=== PATIENT | female | born 1955 | race Caucasian/White ===

== ENCOUNTER 2016-12-31 17:10 | Emergency (ER) | payer OTHER ==
[~2016-12-31] VITALS: Ht 167.6 cm; Wt 63.5 kg
[~2016-12-31 17:10] MED LIST: COZ50 PO
[2016-12-31 17:13] VITALS: BP 144/91
--- NOTE | 2016-12-31 17:17 | NUR ---
Patient to bed 3 at this time.
--- NOTE | 2016-12-31 17:47 | NUR ---
PATIENT PRESENTS TO ED WITH SOB, WORK OF BREATHING INCREASED WITH SLIGHTEST ACTIVITIES-NO BLE EDEMA NOTED, NO ASCITES NOTED AT THIS TIME . PT ABLE TO SPEAK 3 WORDED SPEECH --] . DENIES N/V/D; SKIN IS PINK/WARM/DRY; AAOX4 WITH EVEN AND STEADY GAIT; PT DENIES ANY FEVER, CP, SOB, OR COUGH AT THIS TIME; PATIENT STATES PAIN OF 0/10 AT THIS TIME; VSS; PATIENT POSITIONED FOR COMFORT; HOB ELEVATED; BEDRAILS UP X2; BED DOWN. ER MD MADE AWARE OF PT STATUS.
--- NOTE | 2016-12-31 17:49 | NUR ---
X-Ray at bedside.
[2016-12-31] MEDS ORDERED: CLINDAMYCIN 600 MG/4 ML VIAL IM ONE (18:20)
[2016-12-31] MEDS ORDERED: diphenhydrAMINE 50 MG/ML VIAL IM ONE (18:20)
[2016-12-31] MEDS ORDERED: DEXAMETHASONE 10 MG/ML VIAL IM ONE (18:20)
[2016-12-31] MEDS ORDERED: ONDANSETRON 4 MG ODT PO ONE (18:20)
[2016-12-31] MEDS ORDERED: ALBUTEROL SULFATE/IPRATROPIU 3 ML SOL IH ONE (18:20)
--- NOTE | 2016-12-31 18:35 | NUR ---
hhntx given with duoneb
--- NOTE | 2016-12-31 18:51 | NUR ---
PT SMILING LAUGHING WITH DAUGHTER AT BEDSIDE. HOLDING FULL CLEAR SPEECH---DC HOME INSTRUCTIONS GIVEN TO PT AND DAUGHTER---
--- NOTE | 2016-12-31 18:54 | NUR ---
Patient discharged with v/s stable. Written and verbal after care instructions given and explained. Patient alert, oriented and verbalized understanding of instructions. Ambulatory with steady gait. All questions addressed prior to discharge. ID band removed. Patient advised to follow up with PMD. Rx of CLINDAMYCIN/PHENERGAN,PREDNISONE given. Patient educated on indication of medication including possible reaction and side effects. Opportunity to ask questions provided and answered.
[2016-12-31 19:01] VITALS: BP 143/77
== END 2016-12-31 18:51 | disposition home or self-care (01) ==
LOC: MED 17:10
DX: J45.909 Unspecified asthma, uncomplicated (principal); K74.60 Unspecified cirrhosis of liver; Z91.010 Allergy to peanuts; Z90.710 Acquired absence of both cervix and uterus
CPT/HCPCS: 71010; 94640; 96372; 99284; J1100; J1200; J3490; J7620; Q0092; S0119

== ENCOUNTER 2017-05-15 18:07 | Emergency (ER) | payer OTHER ==
[~2017-05-15] VITALS: Ht 162.6 cm; Wt 62.1 kg
[2017-05-15 18:13] VITALS: BP 135/92
--- NOTE | 2017-05-15 18:20 | NUR ---
PT TAKEN TO CHAIR B.
--- NOTE | 2017-05-15 18:24 | NUR ---
PATIENT IS A 61 YO FEMALE BIB SELF FOR SOB AND COUGH. AWAKE AND ALERT ABLE TO AMBULATE. HX OF LUPUS, HX OF GALLSTONES.
[2017-05-15 18:49] VITALS: BP 135/92
--- NOTE | 2017-05-15 18:49 | NUR ---
Patient discharged with v/s stable. Written and verbal after care instructions given and explained. Patient alert, oriented and verbalized understanding of instructions. Ambulatory with steady gait. All questions addressed prior to discharge. ID band removed. Patient advised to follow up with PMD. Rx of AUGMENTIN, PROMETHAZINE given. Patient educated on indication of medication including possible reaction and side effects. Opportunity to ask questions provided and answered.
== END 2017-05-15 18:49 | disposition home or self-care (01) ==
LOC: MED 18:07
DX: J20.9 Acute bronchitis, unspecified (principal); L93.0 Discoid lupus erythematosus; I10 Essential (primary) hypertension; Z91.010 Allergy to peanuts
CPT/HCPCS: 99283

== ENCOUNTER 2017-07-30 18:08 | Emergency (ER) | payer OTHER ==
[~2017-07-30] VITALS: Ht 157.5 cm; Wt 62.1 kg
--- NOTE | 2017-07-30 18:17 | NUR ---
PATIENT TO ER BED 1
[2017-07-30 18:22] VITALS: BP 166/97
[2017-07-30] MEDS ORDERED: ACETAMINOPHEN EXTRA STRENGTH 500 MG TAB PO ONE (18:30)
--- NOTE | 2017-07-30 18:30 | NUR ---
61f bib grandaughter with c/o sob x today, progressively getting worse. Pt sts she has ILD lung disease. Awaiting lung biopsy. Pts rr are even and tachynpenic. Clear speech. Pt also states back pain x today. Patient denies any injury. Pt is aox4. GCS=15. SKing is warm to touch. Pt appears anxious. No acute resp distress. Awaiting er md shelton. Will continue to monitor.
[2017-07-30] MEDS ORDERED: ACETAMINOPHEN EXTRA STRENGTH 500 MG TAB ONE (18:34)
[2017-07-30] MEDS ORDERED: IBUPROFEN 600 MG TAB ONE (18:39)
[2017-07-30] MEDS ORDERED: IBUPROFEN 600 MG TAB PO ONE ×2 (18:40→19:00)
[2017-07-30] MEDS ORDERED: NACL 0.9% 1,000 ML IV ONE (19:00)
--- NOTE | 2017-07-30 19:22 | NUR ---
Pt report given to Oscar MULLER. Transfer of care at this time.
[2017-07-30 19:37] LABS: BASOPHILS % (AUTO) 0.2 % (0.0-2.0); EOSINOPHILS % (AUTO) 0.1 % (0.0-4.0); HEMATOCRIT 37.8 % (36-48); HEMOGLOBIN 12.9 g/dL (12.0-16.0); LYMPHOCYTES # (AUTO) 0.6 K/uL (2.5-16.5); LYMPHOCYTES % (AUTO) 11.9 % (20.5-51.1); MEAN CORPUSCULAR HEMOGLOBIN 28 pg (27-31); MEAN CORPUSCULAR HGB CONC 34 g/dL (33-37); MEAN CORPUSCULAR VOLUME 82.6 fL (80-94); MONOCYTES # (AUTO) 0.4 K/uL (0.8-1.0); MONOCYTES % (AUTO) 8.7 % (1.7-9.3); NEUTROPHILS # (AUTO) 3.8 K/uL (1.8-7.7); NEUTROPHILS % (AUTO) 79.1 % (42.2-75.2); PLATELET COUNT (AUTO) 54 K/uL (140-450); RED BLOOD CELL COUNT(AUTO) 4.58 MIL/uL (4.20-5.40); WHITE BLOOD COUNT (AUTO) 4.9 K/uL (4.8-10.8)
[2017-07-30 19:41] LABS: ANION GAP 17.9 (8-16); CARBON DIOXIDE 21.9 mmol/L (21-32); CREATININE 0.9 mg/dL (0.6-1.3); POTASSIUM 3.8 mmol/L (3.5-5.1)
[2017-07-30 19:44] LABS: APPEARANCE,URINE SL CLOUDY (CLEAR); BILIRUBIN,URINE NEGATIVE (NEGATIVE); BLOOD, URINE TRACE-I (NEGATIVE); COLOR,URINE YELLOW (YELLOW); LEUKOCYTE ESTERASE ,URINE 2+ (NEGATIVE); NITRITE, URINE NEGATIVE (NEGATIVE); UGLUCOSE NEGATIVE (NEGATIVE)
[2017-07-30 19:47] LABS: ALBUMIN 3.4 g/dL (3.4-5.0); TOTAL BILIRUBIN 1.6 mg/dL (0.0-1.0)
[2017-07-30 20:03] LABS: RBC,URINE 0-5 (RARE) /HPF (0-5); WBC,URINE 20-60 /HPF (0-5)
[2017-07-30] MEDS ORDERED: cefTRIAXone 1,000 MG VIAL ONE (20:39)
[2017-07-30 21:49] VITALS: BP 166/97
--- NOTE | 2017-07-30 21:49 | NUR ---
Patient discharged with v/s stable, afebrile, without pain. Written and verbal after care instructions given and explained. Patient alert, oriented and verbalized understanding of instructions. Ambulatory with steady gait. All questions addressed prior to discharge. ID band removed. Patient advised to follow up with PMD. Rx of Cipro given. Patient educated on indication of medication including possible reaction and side effects. Opportunity to ask questions provided and answered.
[2017-07-31] MEDS ORDERED: CIPR500T4 PO (14:47)
== END 2017-07-30 21:49 | disposition home or self-care (01) ==
LOC: MED 18:08
DX: N12 Tubulo-interstitial nephritis, not specified as acute or chronic (principal); Z86.19 Personal history of other infectious and parasitic diseases; Z90.89 Acquired absence of other organs
CPT/HCPCS: 36415; 71045; 80053; 81001; 81025; 82140; 83605; 83880; 84484; 85025; 85610; 85730; 87040; 87086; 87186; 93005; 96361; 96365; 99285; J0696; J7030; J7060; Q0092

== ENCOUNTER 2017-07-31 11:33 | Inpatient (IN) | payer OTHER ==
[~2017-07-31] VITALS: Ht 167.6 cm; Wt 61.7 kg
[2017-07-31 11:43] VITALS: BP 118/76
[2017-07-31] MEDS ORDERED: ACETAMINOPHEN 325 MG TAB ONE (11:54)
--- NOTE | 2017-07-31 11:57 | NUR ---
Patient to bed 11. RN evaluating patient at bedside.
--- NOTE | 2017-07-31 11:58 | NUR ---
PATIENT PRESENTS TO ED WITH URINARY INFECTION, REPEAT VISIT FROM LAST NIGHT. PT STATES SYMPTOMS WORSENING, FEVER CONSTANT, HEADACHE WORSENING, CHILLS, SHIVERING, AND PAIN . DENIES N/V/D; SKIN IS PINK/WARM/DRY; AAOX4 WITH EVEN AND STEADY GAIT; LUNGS CLEAR BL; HR EVEN AND REGULAR; PT DENIES CP, SOB, OR COUGH AT THIS TIME; PATIENT STATES PAIN OF 9/10 AT THIS TIME; PATIENT POSITIONED FOR COMFORT; HOB ELEVATED; BEDRAILS UP X2; BED DOWN. ER MD MADE AWARE OF PT STATUS.
[2017-07-31] MEDS ORDERED: LEVOFLOXACIN 500 MG/D5W PREMIX 100 ML IV ONE (12:00)
[2017-07-31] MEDS ORDERED: NACL 0.9% 1,000 ML IV ONE ×2 (12:00→13:40)
[2017-07-31 12:43] LABS: BASOPHILS % (AUTO) 0.5 % (0.0-2.0); EOSINOPHILS % (AUTO) 0.3 % (0.0-4.0); HEMATOCRIT 37.2 % (36-48); HEMOGLOBIN 12.7 g/dL (12.0-16.0); LYMPHOCYTES # (AUTO) 0.7 K/uL (2.5-16.5); LYMPHOCYTES % (AUTO) 15.4 % (20.5-51.1); MEAN CORPUSCULAR HEMOGLOBIN 28 pg (27-31); MEAN CORPUSCULAR HGB CONC 34 g/dL (33-37); MEAN CORPUSCULAR VOLUME 81.8 fL (80-94); MONOCYTES # (AUTO) 0.5 K/uL (0.8-1.0); MONOCYTES % (AUTO) 11.2 % (1.7-9.3); NEUTROPHILS # (AUTO) 3.5 K/uL (1.8-7.7); NEUTROPHILS % (AUTO) 72.6 % (42.2-75.2); PLATELET COUNT (AUTO) 55 K/uL (140-450); RED BLOOD CELL COUNT(AUTO) 4.54 MIL/uL (4.20-5.40); RED CELL DISTRIBUTION WIDTH 15.3 % (11.6-13.7); WHITE BLOOD COUNT (AUTO) 4.8 K/uL (4.8-10.8)
[2017-07-31 12:43] LABS: BILIRUBIN,URINE NEGATIVE (NEGATIVE); COLOR,URINE YELLOW (YELLOW); NITRITE, URINE NEGATIVE (NEGATIVE); PH,URINE 7.5 (5.0-9.0); UGLUCOSE NEGATIVE (NEGATIVE)
[2017-07-31] MEDS ORDERED: ONDANSETRON 4 MG/2 ML VIAL IVP ONE (12:50)
[2017-07-31] MEDS ORDERED: KETOROLAC 30 MG/ML VIAL IVP ONE (12:50)
[2017-07-31 13:03] LABS: ANION GAP 21.9 (8-16); CARBON DIOXIDE 16.9 mmol/L (21-32); CREATININE 1.1 mg/dL (0.6-1.3); POTASSIUM 3.8 mmol/L (3.5-5.1)
[2017-07-31 13:08] LABS: ALBUMIN 3.1 g/dL (3.4-5.0); TOTAL BILIRUBIN 2.2 mg/dL (0.0-1.0)
[2017-07-31 13:09] LABS: LEUKOCYTE ESTERASE ,URINE 1+ (NEGATIVE)
[2017-07-31 13:10] LABS: BLOOD, URINE TRACE (NEGATIVE); RBC,URINE 0-5 (RARE) /HPF (0-5)
[2017-07-31 13:13] LABS: APPEARANCE,URINE HAZY (CLEAR)
--- NOTE | 2017-07-31 13:15 | NUR ---
pt c/o RT ac iv pain with movement. iv discontinued and inserted new to left ac #20. meds resumed.
[2017-07-31] MEDS ORDERED: CIPR500T4 PO (14:47)
[2017-07-31 15:30] VITALS: BP 121/70
--- NOTE | 2017-07-31 15:30 | NUR ---
PATIENT ARRIVED ON MST UNIT FROM ER BED/GURNEY. PATIENT ABLE TO WALK FROM ER BED/GURNEY TO MST BED WITH STEADY GAIT. NO DISTRESS NOTED. PAIN WITHIN TOLERABLE. RESPIRATION EVEN, UNLABORED, ON ROOM AIR. AAOX4, CALM, COOPERATIVE, SKIN COLOR APPROPRIATE TO ETHNICITY, WARM TO TOUCH. ABDOMEN SOFT, NON-DISTENDED. LUNGS CTA ON ALL LOBES. SKIN IS INTACT. ORIENTED PATIENT TO ROOM AND CALL LIGHT. REVIEWED PLAN OF CARE WITH PATIENT. PATIENT VERBALIZED UNDERSTANDING. SAFETY MEASURES IN PLACE, CALL LIGHT WITHIN REACH. WILL CONTINUE TO MONITOR.
--- NOTE | 2017-07-31 15:30 | NUR ---
Patient will be admitted to care of DR. VILLANUEVA. Admited to TELE. Will go to room 120A. Belongings list completed. Report to RENZO DEJESUS.
--- NOTE | 2017-07-31 16:30 | NUR ---
DR. VILLANUEVA AT BEDSIDE REVIEWING PLAN OF CARE WITH PATIENT. WILL CONTINUE TO MONITOR.
[2017-07-31] MEDS: NACL 0.9% 1,000 ML IV SCH (16:33)
[2017-07-31] MEDS ORDERED: ACETAMINOPHEN 325 MG TAB PO PRN (16:35)
[2017-07-31] MEDS ORDERED: MORPHINE SULFATE 4 MG/ML SYR IVP PRN (16:35)
[2017-07-31] MEDS ORDERED: ONDANSETRON 4 MG/2 ML VIAL IVP PRN (16:35)
--- NOTE | 2017-07-31 17:30 | NUR ---
PATIENT SITTING IN BED COMFORTABLY. NO DISTRESS NOTED. PAIN WITHIN TOLERABLE. SCHEDULED MEDICATIONS DUE GIVEN. WILL CONTINUE TO MONITOR.
--- NOTE | 2017-07-31 18:00 | NUR ---
PATIENT SITTING IN BED WITH DINNER TRAY IN FRONT. FAMILY MEMBERS AT BEDSIDE. NO DISTRESS NOTED. CONDITION UNCHANGED. WILL CONTINUE TO MONITOR.
--- NOTE | 2017-07-31 19:25 | NUR ---
GAVE REPORT TO SENIOR TECHNICAL WRITER NURSE FOR CONTINUITY OF CARE. PATIENT IN STABLE CONDITION.
--- NOTE | 2017-07-31 19:26 | NUR ---
PATIENT REPORT RECEIVED FROM MORNING NURSE AT BEDSIDE. PATIENT IS AWAKE, ALERT AND ORIENTED. NO SIGNS AND SYMPTOMS OF DISTRESS NOTED. NO COMPLAINTS OF PAIN AT THIS TIME. IV SITE NOTED ON LEFT AC, IVF INFUSING WELL. PLAN OF CARE DISCUSSED WITH PATIENT. PATIENT VERBALIZED UNDERSTANDING. BED IN LOWEST POSITION, SIDE RAILS UP AND CALL LIGHT WITHIN REACH. WILL CONTINUE TO MONITOR.
[2017-07-31 20:00] VITALS: BP 141/80
[2017-07-31] MEDS ORDERED: PIPERACILLIN/TAZOBACTAM 3.375 GM VIAL IV ONE (20:14)
[2017-07-31] MEDS: PIPERACILLIN/TAZOBACTAM 3.375 GM in DEXTROSE 5% 50 ML IV SCH (20:33)
--- NOTE | 2017-07-31 21:00 | NUR ---
MEDICATION EDUCATION GIVEN. PATIENT VERBALIZED UNDERSTANDING. MEDICATION GIVEN ORDERED. PATIENT TOLERATED WELL. WILL CONTINUE TO MONITOR.
--- NOTE | 2017-07-31 23:00 | NUR ---
CHECKED ON PATIENT. PATIENT IS RESTING COMFORTABLY IN BED. NO SIGNS AND SYMPTOMS OF DISTRESS NOTED. WILL CONTINUE TO MONITOR.
[2017-08-01] VITALS: BP 137/77
--- NOTE | 2017-08-01 03:00 | NUR ---
CHECKED ON PATIENT. PATIENT IS RESTING COMFORTABLY IN BED. NO SIGNS AND SYMPTOMS OF DISTRESS NOTED. WILL CONTINUE TO MONITOR.
[2017-08-01 04:00] VITALS: BP 135/70
[2017-08-01] MEDS ORDERED: PIPERACILLIN/TAZOBACTAM 3.375 GM VIAL IV ONE (04:26)
[2017-08-01] MEDS: PIPERACILLIN/TAZOBACTAM 3.375 GM in DEXTROSE 5% 50 ML IV SCH (04:30)
[2017-08-01] MEDS: NACL 0.9% 1,000 ML IV SCH (05:08)
--- NOTE | 2017-08-01 07:17 | NUR ---
PATIENT REPORT GIVEN TO MORNING NURSE AT BEDSIDE. PATIENT IS IN STABLE CONDITION
--- NOTE | 2017-08-01 07:18 | NUR ---
PATIENT REPORT RECEIVED FROM TOOLROOM CHECKER NURSE AT BEDSIDE FOR CONTINUITY OF CARE. PATIENT IS ASLEEP BUT AROUSABLE. NO SIGNS AND SYMPTOMS OF DISTRESS NOTED ON ROOM AIR. NO COMPLAINTS OF PAIN AT THIS TIME. IV SITE NOTED ON LEFT AC, IVF INFUSING WELL. UPDATED THE BOARD, PLAN OF CARE DISCUSSED WITH PATIENT, PATIENT VERBALIZED UNDERSTANDING. SAFETY PRECAUTION IN PLACE, BED IN LOWEST POSITION, CALL LIGHT WITHIN REACH, WILL CONTINUE TO MONITOR PATIENT.
[2017-08-01 08:00] VITALS: BP 111/55
[2017-08-01] MEDS ORDERED: LOSARTAN 50 MG TAB PO SCH (09:00)
[2017-08-01] MEDS ORDERED: predniSONE 20 MG TAB PO SCH (09:00)
--- NOTE | 2017-08-01 09:12 | NUR ---
ADMINISTERED ORDERED MEDICATIONS. PATIENT TOLERATED THEM WELL. PATIENT RESTING IN BED. NO DISTRESS OR SOB NOTED ON ROOM AIR. PATIENT DENIES PAIN AT THIS MOMENT. SAFETY PRECAUTION IN PLACE, CALL LIGHT WITHIN REACH. WILL CONTINUE TO MONITOR PATIENT.
[2017-08-01 09:26] LABS: HEMATOCRIT 32.5 % (36-48); HEMOGLOBIN 11.1 g/dL (12.0-16.0); MEAN CORPUSCULAR HEMOGLOBIN 28 pg (27-31); MEAN CORPUSCULAR HGB CONC 34 g/dL (33-37); MEAN CORPUSCULAR VOLUME 82.8 fL (80-94); PLATELET COUNT (AUTO) 40 K/uL (140-450); RED BLOOD CELL COUNT(AUTO) 3.93 MIL/uL (4.20-5.40); RED CELL DISTRIBUTION WIDTH 15.2 % (11.6-13.7); WHITE BLOOD COUNT (AUTO) 2.3 K/uL (4.8-10.8)
[2017-08-01 10:00] LABS: ALBUMIN 2.5 g/dL (3.4-5.0); ANION GAP 14.1 (8-16); CARBON DIOXIDE 21.3 mmol/L (21-32); POTASSIUM 3.4 mmol/L (3.5-5.1); TOTAL BILIRUBIN 1.6 mg/dL (0.0-1.0)
[2017-08-01 10:10] LABS: LYMPHOCYTES % (MANUAL) 17 % (20-46); MONOCYTES % (MANUAL) 9 % (5-12)
[2017-08-01 10:11] LABS: BASOPHILS % (MANUAL) 0 % (0-2); EOSINOPHILS % (MANUAL) 0 % (0-4)
--- NOTE | 2017-08-01 11:32 | NUR ---
LAB REPORTED URINE CULTURE POSITIVE FOR E.COLI MDRO---- PT REMAINS ADMITTED ROOM 120-A, CHARGE NANCY NOT AVAILABLE FOR REPORT JENNIFER MULLER INFORMED AND WILL NOTIFY CHARGE OF POSITIVE CULTURE
[2017-08-01 12:00] VITALS: BP 112/63
--- NOTE | 2017-08-01 12:00 | NUR ---
RECEIVED MESSAGE FROM LAB VIA CHUYITA Glow, PATIENT POSITIVE FOR MDRO AND ECOLI IN THE URINE. CALLED LAB BACK TO FIND THE RESULTS. RESULTS ARE FROM PATIENT'S VISIT TO THE ER ON 07/30/2017. PAGED DR. VILLANUEVA TO INFORM HER OF NEW FINDING. WILL WAIT FOR HER CALL BACK.
--- NOTE | 2017-08-01 12:15 | NUR ---
NEW ORDERS IN. PATIENT NOW IN CONTACT ISOLATION. PATIENT MOVED FROM ROOM 120A TO 118, PATIENT TOOK ALL HER BELONGINGS WITH HER. FAMILY AT BEDSIDE. EDUCATED PATIENT AND FAMILY MEMBERS ON CONTACT ISOLATION PROTOCOL, THEY VERBALIZED UNDERSTANDING. PATIENT NOW RESTING IN BED, NO DISTRESS OR SOB NOTED ON ROOM AIR. PATIENT DENIES PAIN AT THIS MOMENT. SAFETY PRECAUTION IN PLACE, CALL LIGHT WITHIN REACH. WILL CONTINUE TO MONITOR PATIENT.
--- NOTE | 2017-08-01 12:38 | NUR ---
ADMINISTERED ORDERED MEDICATION. PATIENT TOLERATED IT WELL. PATIENT RESTING IN BED. NO DISTRESS OR SOB NOTED ON ROOM AIR. PATIENT DENIES PAIN AT THIS MOMENT. SAFETY AND ISOLATION PRECAUTION IN PLACE, CALL LIGHT WITHIN REACH. WILL CONTINUE TO MONITOR PATIENT.
[2017-08-01] MEDS ORDERED: PIPER/TAZO 3.375GM/D5W PREMIX 50 ML IV SCH (13:00)
[2017-08-01 16:00] VITALS: BP 137/69
--- NOTE | 2017-08-01 16:59 | NUR ---
DR. VILLANUEVA TO SEE THE PATIENT. DISCHARGE INSTRUCTIONS IN, PATIENT AWARE. WILL START THE DISCHARGE PROCESS. PATIENT CURRENTLY RESTING IN BED, SIGNIFICANT OTHER AT BEDSIDE, NO SIGNS OF DISTRESS OR SOB NOTED ON ROOM AIR. PATIENT DENIES PAIN. SAFETY AND ISOLATION PRECAUTION IN PLACE, CALL LIGHT WITHIN REACH. WILL CONTINUE TO MONITOR PATIENT.
--- NOTE | 2017-08-01 17:30 | NUR ---
DISCHARGE INSTRUCTIONS AND EDUCATION GIVEN TO PATIENT. PATIENT VERBALIZED UNDERSTANDING. IV REMOVED, IV CATHETER INTACT, MINIMAL BLOOD NOTED. ID BANDS CUT. TELE MONITOR REMOVED. PATIENT WILL NOW GET DRESSED AND BE READY TO BED DISCHARGED HOME.
--- NOTE | 2017-08-01 17:55 | NUR ---
PATIENT WHEELED OFF FLOOR BY RN. PATIENT TOOK ALL HER BELONGINGS WITH HER. PATIENT IN STABLE CONDITION.
--- NOTE | 2017-08-02 16:54 | NUR ---
RETRO REVIEW ER REPORT AND H&P FAXED TO [facility] [phone] PHONE DANIS [phone]
== END 2017-08-01 17:55 | disposition home or self-care (01) | DRG 463 ==
LOC: MED 11:33 → MTU 14:27
PROVIDERS: ADMIT Hospitalist; ATTEND Hospitalist
DX: N12 Tubulo-interstitial nephritis, not specified as acute or chronic (principal); J84.9 Interstitial pulmonary disease, unspecified; D69.6 Thrombocytopenia, unspecified; N13.30 Unspecified hydronephrosis; K70.30 Alcoholic cirrhosis of liver without ascites; I10 Essential (primary) hypertension; J44.9 Chronic obstructive pulmonary disease, unspecified; F10.10 Alcohol abuse, uncomplicated; Z91.010 Allergy to peanuts; Z79.899 Other long term (current) drug therapy; Z90.710 Acquired absence of both cervix and uterus; Z87.442 Personal history of urinary calculi
CPT/HCPCS: 36415; 71045; 80053; 81001; 83605; 85025; 87040; 87081; 96361; 96374; 96375; 99285; J1885; J1956; J2270; J2405; J2543; J7030; J7060; J7512

== ENCOUNTER 2018-04-22 03:15 | Emergency (ER) | payer OTHER ==
[~2018-04-22] VITALS: Ht 162.6 cm; Wt 68.0 kg
[~2018-04-22 03:15] MED LIST changes: +CIPR500T4 PO
[2018-04-22 03:21] VITALS: BP 145/79
[2018-04-22] MEDS ORDERED: ONDANSETRON 4 MG/2 ML VIAL IVP ONE (03:55)
[2018-04-22] MEDS ORDERED: ONDANSETRON 4 MG ODT PO ONE (04:05)
[2018-04-22] MEDS: MORPHINE SULFATE 4 MG/ML SYR IVP ONE (04:08)
[2018-04-22] MEDS: NACL 0.9% 1,000 ML IV ONE (04:09)
[2018-04-22] MEDS ORDERED: ONDANSETRON 4 MG TAB ONE (04:14)
[2018-04-22] MEDS: ONDANSETRON 4 MG TAB PO ONE (04:21)
[2018-04-22 05:15] VITALS: BP 117/64
== END 2018-04-22 05:15 | disposition home or self-care (01) ==
LOC: MED 03:15
DX: N39.0 Urinary tract infection, site not specified (principal); R11.2 Nausea with vomiting, unspecified; R19.7 Diarrhea, unspecified; J44.9 Chronic obstructive pulmonary disease, unspecified; I10 Essential (primary) hypertension; Z90.49 Acquired absence of other specified parts of digestive tract; Z79.899 Other long term (current) drug therapy; Z90.710 Acquired absence of both cervix and uterus
CPT/HCPCS: 81002; 96361; 96374; 99283; J2270; Q0162

== ENCOUNTER 2019-02-03 17:01 | Emergency (ER) | payer OTHER ==
[~2019-02-03] VITALS: Ht 157.5 cm; Wt 67.6 kg
[~2019-02-03 17:01] MED LIST changes: -COZ50 PO; +LOSA50TA57 PO
[2019-02-03 17:19] VITALS: BP 137/105
--- NOTE | 2019-02-03 17:25 | NUR ---
PT TO ER LOBBY. BP ELEVATED. PT ALERT AND AWAKE. 95% RA.
--- NOTE | 2019-02-03 20:42 | NUR ---
RECEIVED CALL FROM PATIENT STATING SHE HAD LEFT WITHOUT BEING SEEN.
== END 2019-02-03 20:42 | disposition left against medical advice (07) ==
LOC: MED 17:01
DX: R07.0 Pain in throat (principal); R13.10 Dysphagia, unspecified; Z53.21 Procedure and treatment not carried out due to patient leaving prior to being seen by health care provider

== ENCOUNTER 2019-12-10 08:54 | Emergency (ER) | payer OTHER ==
[~2019-12-10] VITALS: Ht 157.5 cm; Wt 68.0 kg
[2019-12-10 08:56] VITALS: BP 160/97
--- NOTE | 2019-12-10 09:11 | NUR ---
HX : HTN, CIRRHOSIS, ARTHRITIS, LUNG DISEASE, HYPERTHYROID
--- NOTE | 2019-12-10 09:11 | NUR ---
64/F STATES HER TONGUE FELT LIKE IT WAS "TWISTING" SPONTANEOUSLY FOR ABOUT 10 SEC THIS MORNING AND DIFFICULTY SPEAKING. DID NOT BITE TONGUE. DENIES DIZZINESS, MUSCLE WEAKNESS, VISION CHANGE A/W COMPLAINT. STATES "I COULDN'T THINK" DURING THAT TIME, BUT SON DID NOT NOTICE ANY CONFUSION. PT DENIES ANXIETY. STATES THROAT DISCOMFORT 2/2 HYPERTHYROID.
--- NOTE | 2019-12-10 09:14 | NUR ---
DR URIAS EVALUATING PT AT THIS TIME
[2019-12-10] MEDS ORDERED: LORazepam 0.5 MG TAB PO ONE (09:25)
--- NOTE | 2019-12-10 09:40 | NUR ---
EMT AT BEDSIDE FOR EKG
--- NOTE | 2019-12-10 10:38 | NUR ---
PT STATES SHE FEELS "BETTER" AND "MORE CALM" NOW
--- NOTE | 2019-12-10 11:25 | NUR ---
PT CONTINUES TO STATE THAT SHE FEELS WELL
[2019-12-10 12:02] VITALS: BP 150/88
== END 2019-12-10 12:02 | disposition home or self-care (01) ==
LOC: MED 08:54
DX: F41.9 Anxiety disorder, unspecified (principal); J44.9 Chronic obstructive pulmonary disease, unspecified; I10 Essential (primary) hypertension; Z90.49 Acquired absence of other specified parts of digestive tract; Z90.710 Acquired absence of both cervix and uterus; Z79.899 Other long term (current) drug therapy
CPT/HCPCS: 93005; 99283

== ENCOUNTER 2019-12-18 11:51 | Emergency (ER) | payer OTHER ==
[~2019-12-18] VITALS: Ht 167.6 cm; Wt 68.0 kg
[2019-12-18 12:01] VITALS: BP 139/98
--- NOTE | 2019-12-18 12:33 | NUR ---
c/o last night started with heartburn and progressed to ruq sharp stabbing buring pain---constant now---with n/v----
[2019-12-18] MEDS ORDERED: ONDANSETRON 4 MG/2 ML VIAL IVP ONE (12:40)
[2019-12-18] MEDS ORDERED: KETOROLAC 30 MG/ML VIAL IVP ONE (12:40)
--- NOTE | 2019-12-18 12:51 | NUR ---
EKG BEING PERFORMED AT BEDSIDE BY EMT.
--- NOTE | 2019-12-18 12:57 | NUR ---
IV PLACED IN R AC 20 G. LABS DRAWN AND GIVEN TO GYM ATTENDANT.
[2019-12-18 13:02] LABS: BASOPHILS % (AUTO) 0.6 % (0.0-2.0); EOSINOPHILS % (AUTO) 0.7 % (0.0-4.0); HEMATOCRIT 39.6 % (36-48); HEMOGLOBIN 13.9 g/dL (12.0-16.0); LYMPHOCYTES # (AUTO) 1.2 K/uL (2.5-16.5); LYMPHOCYTES % (AUTO) 20.1 % (20.5-51.1); MEAN CORPUSCULAR HEMOGLOBIN 30 pg (27-31); MEAN CORPUSCULAR HGB CONC 35 g/dL (33-37); MEAN CORPUSCULAR VOLUME 86.8 fL (80-94); MONOCYTES # (AUTO) 0.6 K/uL (0.8-1.0); MONOCYTES % (AUTO) 9.6 % (1.7-9.3); NEUTROPHILS # (AUTO) 4.1 K/uL (1.8-7.7); PLATELET COUNT (AUTO) 116 K/uL (140-450); RED BLOOD CELL COUNT(AUTO) 4.57 MIL/uL (4.20-5.40); RED CELL DISTRIBUTION WIDTH 13.7 % (11.6-13.7)
--- NOTE | 2019-12-18 13:02 | NUR ---
PT AMBULATE TO RETROOM WITH STEADY GAIT.
--- NOTE | 2019-12-18 13:06 | NUR ---
UA COLLECTED AND PLACED IN DIRTY UTILITY ROOM.
--- NOTE | 2019-12-18 13:06 | NUR ---
PT AMBULATED TO BED WITH STEADY GAIT. US AT BEDSIDE.
--- NOTE | 2019-12-18 13:07 | NUR ---
MEDHX: HYPERTHYROID, GALLSTONES CIRRHOSIS
[2019-12-18 13:25] LABS: ALBUMIN 3.9 g/dL (3.4-5.0); ANION GAP 16.1 (8-16); CARBON DIOXIDE 22.2 mmol/L (21-32); CREATININE 0.9 mg/dL (0.6-1.3); POTASSIUM 3.3 mmol/L (3.5-5.1); TOTAL BILIRUBIN 1.7 mg/dL (0.0-1.0)
[2019-12-18 13:38] LABS: APPEARANCE,URINE CLEAR (CLEAR); BILIRUBIN,URINE NEGATIVE (NEGATIVE); BLOOD, URINE TRACE-L (NEGATIVE); COLOR,URINE YELLOW (YELLOW); LEUKOCYTE ESTERASE ,URINE NEGATIVE (NEGATIVE); NITRITE, URINE NEGATIVE (NEGATIVE); PH,URINE 6.5 (5.0-9.0); UGLUCOSE NEGATIVE (NEGATIVE)
[2019-12-18 14:02] LABS: RBC,URINE 0-5 /HPF (0-5); WBC,URINE NONE SEEN /HPF (0-5)
--- NOTE | 2019-12-18 14:14 | NUR ---
ERMD AT BEDSIDE.
--- NOTE | 2019-12-18 14:32 | NUR ---
IV removed, catheter intact and site benign. Applied folded 4x4 gauze and tape to stop bleeding.
[2019-12-18 14:35] VITALS: BP 136/84
--- NOTE | 2019-12-18 14:35 | NUR ---
Patient discharged with v/s stable. Written and verbal after care instructions given and explained. Patient alert, oriented and verbalized understanding of instructions. Ambulatory with steady gait. All questions addressed prior to discharge. ID band removed. Patient advised to follow up with PMD. Rx of NAPROSYN, NORCO, ZOFRAN given. Patient educated on indication of medication including possible reaction and side effects. Opportunity to ask questions provided and answered.
== END 2019-12-18 14:35 | disposition home or self-care (01) ==
LOC: MED 11:51
DX: K80.20 Calculus of gallbladder without cholecystitis without obstruction (principal); R11.0 Nausea; I10 Essential (primary) hypertension; E07.9 Disorder of thyroid, unspecified; Z79.899 Other long term (current) drug therapy
CPT/HCPCS: 36415; 76705; 80053; 81001; 83690; 85025; 93005; 96374; 96375; 99285; J1885; J2405; Q0092

== ENCOUNTER 2023-05-30 18:50 | Emergency (ER) | payer OTHER ==
[~2023-05-30] VITALS: Ht 162.6 cm; Wt 59.9 kg
[2023-05-30 18:55] VITALS: BP 178/86; PULSE 98; RESP 20; TEMP 97.7; O2SAT 98
[2023-05-30] MEDS ORDERED: ACET-10509 PO (21:39)
[2023-05-30 21:44] VITALS: BP 142/92; PULSE 91; RESP 20; TEMP 97.7; O2SAT 100
== END 2023-05-30 21:44 | disposition home or self-care (01) ==
LOC: MED 18:50
DX: S16.1XXA Strain of muscle, fascia and tendon at neck level, initial encounter (principal); S20.229A Contusion of unspecified back wall of thorax, initial encounter; S00.03XA Contusion of scalp, initial encounter; F10.129 Alcohol abuse with intoxication, unspecified; K21.9 Gastro-esophageal reflux disease without esophagitis; I10 Essential (primary) hypertension; Z86.39 Personal history of other endocrine, nutritional and metabolic disease; Z79.899 Other long term (current) drug therapy; Y90.9 Presence of alcohol in blood, level not specified; W01.198A Fall on same level from slipping, tripping and stumbling with subsequent striking against other object, initial encounter; Y92.89 Other specified places as the place of occurrence of the external cause; Y93.89 Activity, other specified; Y99.8 Other external cause status
CPT/HCPCS: 70450; 72125; 72128; 73562; 99284